=== PATIENT | male | born 1935 | race Caucasian/White ===

== ENCOUNTER 2019-08-20 05:23 | Observation (INO) ==
[2019-08-20] MEDS ORDERED: Nicotine 14 MG PATCH.TD24 TD SCH (09:45)
[2019-08-20 15:52] VITALS: BP 183/76
== END 2019-08-20 18:15 | disposition home or self-care (01) ==
LOC: 3ANU → SUATTDRO 08:27
PROVIDERS: ADMIT Internal Medicine; ATTEND Internal Medicine